=== PATIENT | female | born 1960 | race Caucasian/White ===

== ENCOUNTER 2016-11-12 08:38 | Emergency (ER) | payer OTHER ==
[2016-11-12 08:46] VITALS: BP 135/86; PULSE 87; TEMP 98.8; BMI 31.6
--- NOTE | 2016-11-12 09:17 | PDOC ---
History of Present Illness - General Chief Complaint: Pain Stated Complaint: JAW PAIN Time Seen by Provider: 11/12/16 09:03 History Source: Patient Exam Limitations: No Limitations - History of Present Illness Initial Comments: 11/12/16 09:10 55 yr female no medical history with pain to left side of jaw, lower tooth painful and sensitive to cold and hot. Pt states this has been for 4 days, has apt at a walk in dental in 2 weeks. no allergies. no fever. Timing/Duration: 1 week Severity: mild, moderate Associated Symptoms: reports: other (dental pain ) Past History - Past Medical History Allergies/Adverse Reactions: Allergies Allergy/AdvReac Type Severity Reaction Status Date / Time No Known Allergies Allergy Verified 11/12/16 08:47 Home Medications: Ambulatory Orders Albuterol Sulfate Inhaler - [Ventolin HFA Inhaler -] 2 inh PO Q4H PRN 01/22/15 Cholecalciferol (Vitamin D3) [Vitamin D] 1,000 unit PO WEEKLY 01/22/15 Omeprazole [Prilosec] 20 mg PO DAILY 01/22/15 Aspirin [ASA -] 81 mg PO DAILY 06/13/15 Cetirizine HCl [Zyrtec -] 10 mg PO DAILY 06/13/15 Gabapentin [Neurontin -] 100 mg PO DAILY 06/13/15 Tiotropium [place] [Spiriva -] 1 inh PO DAILY 06/13/15 Metronidazole [Flagyl -] 250 mg PO TID #0 tablet 06/15/15 Oxycodone HCl/Acetaminophen [Percocet 5-325 mg Tablet -] 1 - 2 tab PO Q4H PRN # 20 tablet 09/30/15 Acetaminophen W/ Codeine #3 [Tylenol # 3 -] 1 tab PO Q4H PRN #20 tablet MDD 6 tabs 11/12/16 Amoxicillin - [Amoxicillin 500mg Capsule -] 500 mg PO BID #14 capsule 11/12/16 Asthma: Yes Cardiac Disorders: Yes (HEART MURMUR) GI Disorders: Yes (GERD) Hypercholesterolemia: Yes - Surgical History Abdominal Surgery: Yes Cholecystectomy: Yes - Psycho/Social/Smoking Cessation Hx Suicidal Ideation: No Smoking History: Never smoked Have you smoked in the past 12 months: No Number of Cigarettes Smoked Daily: 5 If you are a former smoker, when did you quit?: 2014 Cigars Per Day: 5 Information on smoking cessation initiated: No Hx Alcohol Use: No Drug/Substance Use Hx: No Substance Use Type: None *Physical Exam - Vital Signs Last Vital Signs Temp Pulse Resp BP Pulse Ox 98.8 F 87 18 135/86 99 11/12/16 08:44 11/12/16 08:44 11/12/16 08:44 11/12/16 08:44 11/12/16 08:44 - Physical Exam General Appearance: Yes: Nourished, Appropriately Dressed HEENT: positive: EOMI, KRISTYN, Normal ENT Inspection, TMs Normal, Pharynx Normal, Other (poor dentition, multiple dental tartar, lower left gum line with inflamation, erythema no abscess, no jaw swelling, tender to touch left lower jaw, FROM no click ) Neck: positive: Supple. negative: Tender Respiratory/Chest: positive: Lungs Clear, Normal Breath Sounds. negative: Chest Tender Cardiovascular: positive: Regular Rhythm, Regular Rate Musculoskeletal: positive: Normal Inspection Extremity: positive: Normal Capillary Refill, Normal Inspection, Normal Range of Motion Integumentary: positive: Normal Color, Dry, Warm Neurologic: positive: Fully Oriented, Alert, Normal Response, Motor Strength 5/5 Medical Decision Making - Medical Decision Making 11/12/16 13:24 cc: toothache, c/o left ear and jaw pain no trauma FROM of the jaw no audible or palpable click, c/o pain to the left lower gum line and tooth sensitivity to hot or cold will place on antibiotics, pain meds pt has a dentist that she states can get appointment in 2 weeks I have given pt information for the dental clinic at [facility], the [facility] dental clinic pt has states "it is to far I need something in [place]". I have given pt information for dental clinic on [address] as well. Pt understands she needs to see dental to have further workup . all questions asked and asnwered before discharge. pt is stable no acute distress. Pt is speaking in full sentences with no evidence of jaw pain. 11/12/16 13:26 *DC/Admit/Observation/Transfer Diagnosis at time of Disposition: Toothache - Prescriptions Prescriptions: Amoxicillin - [Amoxicillin 500mg Capsule -] 500 mg PO BID #14 capsule Acetaminophen W/ Codeine #3 [Tylenol # 3 -] 1 tab PO Q4H PRN #20 tablet MDD 6 tabs PRN Reason: Severe Pain - Referrals Referrals: Rai Jamil MD [Primary Care Provider] - - Patient Instructions Additional Instructions: gargle with warm salt water 4-5 times a day room temperature fluids and foods that are soft take the pain medicine as directed, you can take with motrin for better effect ( over the counter ibuprofen, advil or motrin 600mg) take the antibioitc for 7 days follow with your dentist or there are dental clinics at [facility] is located at [facility] [address] [place] [address] ([facility]) in [place]. For Emergency Services/Urgent Care, please call .
== END 2016-11-12 09:24 | disposition home or self-care (01) ==
LOC: JERFT 08:38
DX: K08.89 Other specified disorders of teeth and supporting structures (principal); J45.909 Unspecified asthma, uncomplicated; R01.1 Cardiac murmur, unspecified; E78.00 Pure hypercholesterolemia, unspecified; K21.9 Gastro-esophageal reflux disease without esophagitis
CPT/HCPCS: 99281-25